=== PATIENT | male | born 2000 | race African-American/Black ===

== ENCOUNTER 2021-01-12 19:32 | Emergency (ER) | payer MEDICAID, OTHER | END 2021-01-12 21:30 | disposition left against medical advice (07) | LOC: ER 19:32 | DX: Z04.1 Encounter for examination and observation following transport accident (principal); Z53.21 Procedure and treatment not carried out due to patient leaving prior to being seen by health care provider ==

== ENCOUNTER 2021-05-18 06:50 | Emergency (ER) | payer SELFPAY ==
[~2021-05-18] VITALS: Ht 177.8 cm; Wt 81.8 kg
[2021-05-18 06:58] VITALS: BP 150/78
[2021-05-18] MEDS ORDERED: CYCL10TA19 PO (07:27)
[2021-05-18] MEDS ORDERED: NAPR-682 PO (07:27)
--- NOTE | 2021-05-18 07:28 | ED.ADGEN ---
Past Medical History Past Medical History: No Pertinent History Past Surgical History: No Surgical History Additional Past Surgical Histo: Arm josue Smoking Status: Never Smoker Alcohol Use: None Drug Use: None General Adult EDM: Chief Complaint: BACK PAIN OR INJURY HPI: HPI: Patient is a 21-year-old male who arrives ambulatory to the emergency department complaining of left-sided thoracolumbar back pain. Patient was changing a tire at approximately 2 AM this morning and went to pull on the tire for the vehicle and felt a sharp twinge in his back at the left side. Patient states he has had continued soreness since that time. Despite his illness, he denies any radiation of his pain. Specifically denies any midline pain or blunt trauma. Additionally he denies any saddle anesthesia, change in bowel bladder habits or radiation to his legs. He further denies any history of abdominal pain. He is awake, alert and nontoxic-appearing. Review of Systems: Review of Systems: Constitutional: Denies fever or chills. [] Eyes: Denies change in visual acuity. [] HENT: Denies nasal congestion or sore throat. [] Respiratory: Denies cough or shortness of breath. [] Cardiovascular: Denies chest pain or edema. [] GI: Denies abdominal pain, nausea, vomiting, bloody stools or diarrhea. [] : Denies dysuria. [] Musculoskeletal: Reports thoracolumbar back pain at the left side. Denies joint pain. [] Integument: Denies rash. [] Neurologic: Denies headache, focal weakness or sensory changes. [] Endocrine: Denies polyuria or polydipsia. [] Lymphatic: Denies swollen glands. [] Psychiatric: Denies depression or anxiety. [] Allergies: Allergies: Allergies Coded Allergies Type Severity Reaction Last Updated Verified No Known Drug Allergies 05/18/21 No Physical Exam: PE: Constitutional: Well developed, well nourished, no acute distress, non-toxic appearance. [] HENT: Normocephalic, atraumatic, bilateral external ears normal, oropharynx moist, no oral exudates, nose normal. [] Eyes: PERRLA, EOMI, conjunctiva normal, no discharge. [] Neck: Normal range of motion, no tenderness, supple, no stridor. [] Cardiovascular:Heart rate regular rhythm, no murmur [] Lungs & Thorax: Bilateral breath sounds clear to auscultation [] Abdomen: Bowel sounds normal, soft, no tenderness, no masses, no pulsatile masses. [] Skin: Warm, dry, no erythema, no rash. [] Back: Patient has minimal tenderness to palpation at the paraspinal musculature in the thoracolumbar segment of his back on the left. No CVA tenderness. [] Extremities: No tenderness, no cyanosis, no clubbing, ROM intact, no edema. [] Neurologic: Alert and oriented X 3, normal motor function, normal sensory function, no focal deficits noted. [] Psychologic: Affect normal, judgement normal, mood normal. [] Current Patient Data: Vital Signs: Vital Signs Date Time Temp Pulse Resp B/P (MAP) Pulse Ox O2 Delivery O2 Flow Rate FiO2 05/18/21 06:58 97.9 64 150/78 (102) 98 Room Air 97.9 EKG: EKG: [] Heart Score: C/O Chest Pain: No Risk Factors: Risk Factors: DM, Current or recent (<one month) smoker, HTN, HLP, family history of CAD, obesity. Risk Scores: Score 0 - 3: 2.5% MACE over next 6 weeks - Discharge Home Score 4 - 6: 20.3% MACE over next 6 weeks - Admit for Clinical Observation Score 7 - 10: 72.7% MACE over next 6 weeks - Early Invasive Strategies Radiology/Procedures: Radiology/Procedures: [] Course & Med Decision Making: Course & Med Decision Making Pertinent Labs and Imaging studies reviewed. (See chart for details) [] Dorinda Disclaimer: Dorinda Disclaimer: This electronic medical record was generated, in whole or in part, using a voice recognition dictation system. Departure Departure Impression: Primary Impression: Thoracolumbar back pain Disposition: HOME / SELF CARE / HOMELESS Condition: STABLE Referrals: NO PCP (PCP) Patient Instructions: Back Pain in Scripts Cyclobenzaprine Hcl (CYCLOBENZAPRINE HCL) 10 Mg Tablet 1 TAB PO TID for 5 Days, #15 TAB Prov: HAIR ZENDEJAS DO 05/18/21 Naproxen Sodium (ANAPROX DS) 550 Mg Tablet 1 TAB PO BID for 5 Days, #10 TAB 0 Refills Prov: HAIR ZENDEJAS DO 05/18/21 HAIR ZENDEJAS DO May 18, 2021 07:27
== END 2021-05-18 07:32 | disposition home or self-care (01) ==
LOC: ER 06:50
DX: M54.6 Pain in thoracic spine (principal)
CPT/HCPCS: 99283

== ENCOUNTER 2021-05-25 06:08 | Emergency (ER) | payer SELFPAY ==
[~2021-05-25] VITALS: Ht 177.8 cm; Wt 85.3 kg
[~2021-05-25 06:08] MED LIST: CYCL10TA19 PO; NAPR-682 PO
--- NOTE | 2021-05-25 09:37 | PHYS DOC ---
Past Medical History Past Medical History: No Pertinent History Past Surgical History: Other Additional Past Surgical Histo: left arm fracture repair Smoking Status: Never Smoker Alcohol Use: None Drug Use: None General Adult EDM: Chief Complaint: KNEE INJURY HPI: HPI: Patient is a 21 year old male presents to the emergency department reporting approximately 1700 yesterday as he was walking out the door to go to work large dog jumped on his back, he stumbled forward and twisted his right knee feeling a pop. Patient states he did fall down to the ground however did not injure any other part of his body, did not hit his head, did not lose consciousness. Patient reports he was helped up and he went on to work. 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 Patient reports a 4 out of 10 right knee pain at rest, increases to an 8 out of 10 when ambulating. Denies numbness or tingling to his right lower extremity. Does report mild swelling to the right knee. Patient did not take any [id number] or prescription pain medication for this pain, denied using ice or other nonpharmacological pain relief methods prior to arrival to the emergency department today. Patient is asking for work excuse. Patient denies history of smoking cigarettes, drinking alcohol or illicit drug use, denies allergies to medications, takes no medications at home, does not have a primary care physician. Review of Systems: Review of Systems: 14 body systems of review of systems have been reviewed. See HPI for pertinent positives and negative responses, otherwise all other systems are negative, no npertinent or noncontributory. Constitutional: Negative except as outlined in HPI above. Skin: Negative except as outlined in HPI above. Eyes: Negative except as outlined in HPI above. HENT: Negative except as outlined in HPI above. Respiratory: Negative except as outlined in HPI above. Cardiovascular: Negative except as outlined in HPI above. GI: Negative except as outlined in HPI above. : Negative except as outlined in HPI above. Musculoskeletal: Negative except as outlined in HPI above. Integument: Negative except as outlined in HPI above. Neurologic: Negative except as outlined in HPI above. Endocrine: Negative except as outlined in HPI above. Lymphatic: Negative except as outlined in HPI above. Psychiatric: Negative except as outlined in HPI above. Heart Score: C/O Chest Pain: No Risk Factors: Risk Factors: DM, Current or recent (<one month) smoker, HTN, HLP, family history of CAD, obesity. Risk Scores: Score 0 - 3: 2.5% MACE over next 6 weeks - Discharge Home Score 4 - 6: 20.3% MACE over next 6 weeks - Admit for Clinical Observation Score 7 - 10: 72.7% MACE over next 6 weeks - Early Invasive Strategies Allergies: Allergies: Allergies Coded Allergies Type Severity Reaction Last Updated Verified No Known Drug Allergies 05/18/21 No Physical Exam: PE: Constitutional: Well developed, well nourished, no acute distress, non-toxic appearance. 21-year-old male in no apparent distress. HENT: Normocephalic, atraumatic. Eyes: Conjunctiva normal, no discharge. Neck: Normal range of motion, no stridor. Cardiovascular: No cyanosis appreciated, distal cap refill less than 2 seconds. Regular rate and rhythm, heart sounds S1-S2. Lungs & Thorax: Patient is in no respiratory distress, lung sounds are clear to auscultation all lung webster. Abdomen: Nontender, no abnormalities noted. Skin: Warm, dry, no erythema, no rash. Back: No tenderness, no deformities. Extremities: No tenderness, no cyanosis, no clubbing, ROM intact, no edema. Full passive range of motion of right knee joint without crepitus or locking of knee joint, there is discomfort at rest, no right-sided joint laxity when compared to the left knee joint, satisfactory knee stability tests valgus, varus, anterior posterior drawer test, distal cap refill less than 2 seconds equal lower extremities, 2+ pedal pulses equal bilateral lower extremities, there is no edema, no appreciable swelling of the right knee, there is pain to palpation along the medial aspect of the right knee joint musculoskeletal structures. There is no bruising, no skin abrasions or injury appreciated. The left knee does have 2 small abrasions over patella well-healing, no sign of infectious process appreciated, patient reports he scraped his knee several days ago and denies pain of the left knee. Neurologic: Alert and oriented X 3, normal motor function, normal sensory function, no focal deficits noted. Psychologic: Affect normal, judgement normal, mood normal. Current Patient Data: Vital Signs: Vital Signs Date Time Temp Pulse Resp B/P (MAP) Pulse Ox O2 Delivery O2 Flow Rate FiO2 05/25/21 08:02 98.3 66 18 140/97 (111) 98 Room Air 98.3 EKG: EKG: [] Radiology/Procedures: Radiology/Procedures: STATUS: REG ER ORD. PHYSICIAN: FAISAL ROSENTHAL APRN REASON: knee pain after twisting and feeling pop PROCEDURE: KNEE RIGHT 4V Exam: XR KNEE 4 VIEWS WITH PATELLA_RT History: Knee pain after twisting. Comparison: None. Findings: Osseous mineralization is normal. No acute fracture or dislocaton. No significant degenerative changes. Soft tissues are unremarkable. Impression: 1. No acute osseous abnormality of the right knee. Electronically signed by: Cruz Bradley MD (05/25/2021 9:58 AM) [id number] Course & Med Decision Making: Course & Med Decision Making Pertinent Labs and Imaging studies reviewed. (See chart for details) 21-year-old male, vital signs reviewed, resents emergency room with right knee pain after twisting it yesterday evening approximately 1700 and felt a pop. Physical examination consistent with knee sprain however will order x-ray of ri ght knee, give IM pain medication, ice pack application. X-ray of right knee unremarkable for acute injury, there is no joint effusion appreciated per house radiologist interpretation. Discussed findings with patient, reevaluation patient reports no pain at rest which is decreased from 4- 10 down to 0 out of 10, patient still experiences mild discomfort with passive range of motion. Discussed with patient Puneet wrap, knee immobilization, crutches with no weightbearing until seen by orthopedic or primary care this week, strict follow-up with orthopedic specialty, will give work excuse. Discussed RICE therapy, [id number] Tylenol and or Motrin for ongoing discomfort patient gave verbal understanding of and is amenable to ED discharge planning. Discussed with the patient all findings and diagnostic testing as well as the need to follow-up with their primary care provider for further evaluation and treatment or return to the ED if any new or worsening symptoms. Strict return precautions were also discussed at length, the patient voiced understanding and agreement with the discharge planning. The patient was nontoxic in appearance, in no apparent distress, and hemodynamically stable at the time of disposition. Dragon Disclaimer: Dragon Disclaimer: This electronic medical record was generated, in whole or in part, using a voice recognition dictation system. Departure Departure Impression: Primary Impression: Right knee sprain Qualified Codes: S83.91XA - Sprain of unspecified site of right knee, initial encounter Disposition: HOME / SELF CARE / HOMELESS Condition: GOOD Referrals: NO PCP (PCP) JESSICA AGUILERA Jr. DO Patient Instructions: Knee Sprain, Knee Wraps (Elastic Bandage) and RICE Additional Instructions: You were seen today in the emergency department for right knee pain after twisting it and feeling a pop yesterday. You were given an intramuscular injection of pain medication called Toradol 60 mg. An x-ray was performed and did not show any fractures or fluid collection within the joint of your right knee. Please use RICE therapy, this is a acronym for rest, ice, compression, elevation. Ice packs 30 minutes on and 30 minutes off while awake for the next 48 to 72 hours to help reduce swelling as this will assist in pain control. Use Puneet wrap's to help keep knee stable. We have applied a knee immobilizer, use crutches with no weightbearing to the right leg until seen by your primary care physician within the next 5 to 7 days. I have provided a work excuse. I have also provided a list of area healthcare clinics and primary care providers for you to establish primary health care with. You had indicated you have injured your right knee meniscus in the past, you may consider following up with the orthopedic surgeon that you seen at that time, I have provided a orthopedic surgeon for you to follow-up with if needed. You may continue to use [id number] NSAID therapy such as Naprosyn or ibuprofen for ongoing knee discomfort. Please return to the emergency department for worsening symptoms or other concerns. Thank you for visiting our Emergency Department. It was a pleasure taking care of you today in the emergency department and we appreciate you trusting us with your care. If any additional problems come up don't hesitate to return to visit us. Please follow up with your primary care provider so they can plan additional care if needed and know about the problem that you had. If symptoms worsen come back to the Emergency Department. Any concerning symptoms that start such as chest pain, shortness of air, weakness or numbness on one side of the body, running high fevers or any other concerning symptoms return to the ER. EMERGENCY DEPARTMENT GENERAL DISCHARGE INSTRUCTIONS Thank you for coming to [facility] Emergency Department (ED) today and trusting us with you care. We trust that you had a positive experience in our Emergency Department. If you wish to speak to the department management, you may call the Director at [phone]. YOUR FOLLOW UP INSTRUCTIONS ARE FOLLOWS: 1. Do you have a private Doctor? If you do not have a private doctor, please ask for a resource list of physicians or clinics that may be able to assist you with follow up care. 2. The Emergency Physicain has interpreted your x-rays. The X-Ray specialist will also review them. If there is a change in the findings, you will be notified in 48 hours when at all possible. 3. A lab test or culture has been done, your results will be reviewed and you will be notified if you need a change in treatment. ADDITIONAL INSTRUCTIONS AND INFORMATION: 1. Your care today has been supervised by a physician who is specially trained in emergency care. Many problems require more than one evaluation for a complete diagnosis and treatment. We recommend that you schedule your follow up appointment as recommended to ensure complete treatment of you illness or injury. If you are unable to obtain follow up care and continue to have a problem, or if your condition worsens, we recommend that you return to the ED. 2. We are not able to safely determine your condition over the phone nor are we able to give sound medical advice over the phone. For these safety reasons, if you call for medical advice we will ask you to come to the ED for further evaluation. 3. If you have any questions regarding these discharge instructions please call the ED at [phone]. SAFETY INFORMATION: In the interest of safety, wellness, and injury prevention; we encourage you to wear your sealbelt, if you smoke; quite smoking, and we encourage family to use a protective helmet for bicycling and other sporting events that present an increased risk for head injury. IF YOUR SYMPTOMS WORSEN OR NEW SYMPTOMS DEVELOP, OR YOU HAVE CONCERNS ABOUT YOUR CONDITION; OR IF YOUR CONDITION WORSENS WHILE YOU ARE WAITING FOR YOUR FOLLOW UP APPOINTMENT; EITHER CONTACT YOUR PRIMARY CARE DOCTOR, THE PHYSICIAN WHOSE NAME AND NUMBER YOU WERE GIVEN, OR RETURN TO THE ED IMMEDIATELY. Scripts Ibuprofen (IBUPROFEN) 600 Mg Tablet 600 MG PO PRN Q6HRS PRN for INFLAMMATION, #20 TAB 0 Refills Prov: FAISAL ROSENTHAL MEAT DEPARTMENT MANAGER 05/25/21 FAISAL ROSENTHAL APRN May 25, 2021 09:37
[2021-05-25] MEDS ORDERED: KETOROLAC 60 MG/2 ML VIAL. IM ONE (10:00)
--- NOTE | 2021-05-25 10:01 | RAD ---
Exam: XR KNEE 4 VIEWS WITH PATELLA_RT History: Knee pain after twisting. Comparison: None. Findings: Osseous mineralization is normal. No acute fracture or dislocaton. No significant degenerative change s. Soft tissues are unremarkable. Impression: 1. No acute osseous abnormality of the right knee. Electronically signed by: Cruz Bradley MD (05/25/2021 9:58 AM) [id number]
[2021-05-25] MEDS ORDERED: IBUP-1007 PO (10:37)
[2021-05-25 11:37] VITALS: BP 146/67
== END 2021-05-25 11:40 | disposition home or self-care (01) ==
LOC: ER 06:08
DX: S83.91XA Sprain of unspecified site of right knee, initial encounter (principal); X50.9XXA Other and unspecified overexertion or strenuous movements or postures, initial encounter; Y93.01 Activity, walking, marching and hiking; Y92.89 Other specified places as the place of occurrence of the external cause; Y99.8 Other external cause status
CPT/HCPCS: 29505; 73564; 96372; 99283; J1885; A6450